=== PATIENT | female | born 1975 | race Two or more races ===

== ENCOUNTER 2024-10-27 11:10 | Emergency (ER) | payer SELFPAY ==
[~2024-10-27] VITALS: Ht 162.6 cm; Wt 70.0 kg
--- NOTE | 2024-10-27 11:18 | ECG ---
[facility] Test Date: 2024-10-27 Test Time: 11:12:56 Pat Name: VANESSA HAYWOOD Department: er Room: Gender: F Senior Operations Analyst: brittany : 1975 Requested By: KAREEM DALE Order Number: [id number] Reading MD: Matthieu Guillory Measurements Intervals [place] Rate: 53 P: 72 DE: 171 QRS: -42 QRSD: 123 T: 62 QT: 438 QTc: 412 Interpretive Statements Sinus rhythm RBBB and LAFB Electronically Signed On 10-28-2024 8:54:36 PST by Matthieu Guillory Please click the below link to view image of tracing.
--- NOTE | 2024-10-27 11:29 | ED.PDOC ---
GI ASSESSMENT HPI Comments 48 year old female JEAN presents to the ED with chief complaint of abdominal pain. Patient reports that she has been experiencing lower abdominal pain with associated nausea, vomiting, diarrhea, and fever since yesterday. Patient relays that her family at home all has the stomach flu and she is experiencing similar symptoms to them. Patient denies any dizziness, chest pain, SOB, dysuria, hematemesis, or headache. Chief Complaint: Abdominal Pain Time Seen by MD: 11:26 Primary Care Provider: JUSTINE Lou Notes: Nurses Notes, Storm Window Installer Notes, Medications, Allergies Allergies: Coded Allergies: NO KNOWN ALLERGIES (Unverified , 01/29/16) Information Source: Patient, Emergency Med Personnel Mode of Arrival: EMS Timing: Days Duration: Since onset Prehospital treatment: None Quality: Sharp Vomitus: Watery Stool: Watery Severity: Moderate Recent: None Recent Hx of: None Pain Location: Suprapubic Modifying Factors: Nothing Associated sign and symptoms: Nausea, Vomiting, Diarrhea, Abdominal Pain, Fever Past Medical History PAST MEDICAL HISTORY: Denies Surgical History: CYBER DEFENSE ANALYST History: No Pertinent CYBER DEFENSE ANALYST History Social History Smoker: Non-Smoker Alcohol: Denies ETOH Use Drugs: Denies Drug Use Lives In: Home Constitutional: reports: fever; denies: chills, diaphoresis, fatigue, malaise, sweats, weakness, others EENTM: denies: blurred vision, double vision, ear bleeding, ear discharge, ear drainage, ear pain, ear ringing, eye pain, eye redness, hearing loss, mouth pain, mouth swelling, nasal discharge, nose bleeding, nose congestion, nose pain, photophobia, tearing, throat pain, throat swelling, voice changes, others Respiratory: denies: cough, hemoptysis, orthopnea, SOB at rest, shortness of breath, SOB with excertion, stridor, wheezing, others Cardiovascular: denies: chest pain, dizzy spells, diaphoresis, Dyspnea on exertion, edema, irregular heart beat, left arm pain, lightheadedness, palpitations, PND, syncope, others Gastrointestinal: reports: abdominal pain, diarrhea, nausea, vomiting; denies: abdomen distended, blood streaked bowels, constipated, dysphagia, difficulty swallowing, hematemesis, melena, poor appetite, poor fluid intake, rectal bleeding, rectal pain, others Genitourinary: denies: abnormal vagina bleeding, burning, dyspareunia, dysuria, flank pain, frequency, hematuria, incontinence, pain, , vagina discharge, urgency, others Neurological: denies: dizziness, fainting, headache, left sided numbness, left sided weakness, numbness, paresthesia, pre-existing deficit, right sided numbness, right sided weakness, seizure, speech problems, tingling, tremors, weakness, others Musculoskeletal: denies: back pain, gout, joint pain, joint swelling, muscle pain, muscle stiffness, neck pain, others Integumetry: denies: bruises, change in color, change in hair/nails, dryness, laceration, lesions, lumps, rash, wounds, others Allergic/Immunocompromised: denies: Difficulty Healing, Frequent Infections, Hives, Itching, others Hematologic/Lymphatic: denies: anemia, blood clots, easy bleeding, easy bruising, swollen glands, others Endocrine: denies: excessive hunger, excessive sweating, excessive thirst, excessive urination, flushing, intolerance to cold, intolerance to heat, unexplained weight gain, unexplained weight loss, others Psychiatric: denies: anxiety, bipolar disorder, depression, hopeless, panic disorder, schizophrenia, sleepless, suicidal, others All Other Systems: Reviewed and Negative Physical Exam General Appearance: Mild Distress HEENT: Other (Dry mucous membranes) Neck: Full Range of Motion, Normal Inspection Respiratory: Lungs Clear, No Respiratory Distress, Normal Breath Sounds Cardiovascular: No Edema, No JVD, Regular Rate/Rhythm Breast Exam: Deferred Gastrointestinal: Soft, Tenderness (Mild diffuse) Genitalia: Deferred Pelvic: Deferred Rectal: Deferred Extremities: Normal inspection, Normal range of motion, Non-tender, No pedal edema Neurologic: Alert (Oriented x4), No Motor Deficits, Normal Affect, Normal Mood, No Sensory Deficits Cerebellar Function: NOT DONE Reflexes: NOT DONE Skin: Dry, Pallor, Warm Lymphatic: NOT DONE Was a procedure done? Was a procedure done?: No GI differential Dx Differential Diagnosis: Appendicitis, Diverticular disease, Dysmenorrhea, Ectopic , Gastroenteritis, Inflammatory BD, Ischemic Bowel, PID, UTI, Dehydration, Diabetes/ DKA, Electrolyte Imbalance, Food Poisoning, , Bacterial, Parasitic, Viral, Hypovolemia, Renal Failure, Stress Ulcer X-Ray, Labs, Meds, VS Vital Signs Date Time Temp Pulse Resp B/P (MAP) Pulse Ox O2 Delivery O2 Flow Rate FiO2 10/27/24 13:06 98.1 76 20 111/71 (84) 100 98.1 10/27/24 12:08 62 16 132/86 10/27/24 11:40 53 10/27/24 11:25 98.2 78 20 138/78 (98) 97 98.2 10/27/24 11:25 78 20 97 Room Air 10/27/24 11:12 98.0 57 24 126/50 (75) 100 Lab Test 10/27/24 13:24 10/27/24 11:49 Range/Units Urine Color Light-yellow Yellow Urine Clarity Clear Clear Urine pH 5.5 5.0-9.0 Urine Specific [place] 1.023 1.001-1.035 Urine Protein 1+ H Negative Urine Ketones 4+ H Negative Urine Blood 2+ H Negative /uL Urine Nitrite Negative Negative Urine Bilirubin Negative Negative Urine Urobilinogen Normal Negative mg/dL Urine Leukocyte Esterase Negative Negative /uL Urine RBC 1 0 - 4 /hpf Urine WBC 2 0 - 5 /hpf Urine Squamous Epithelial Cells Few <5 /hpf Urine Bacteria None seen None Seen /hpf Urine Mucus Few None Seen Urine Glucose Trace Normal mg/dL White Blood Count 7.2 4.4-10.8 10^3/uL Red Blood Count 4.59 4.0-5.20 10^6/uL Hemoglobin 8.9 L 12.2-16.2 g/dL Hematocrit 29.5 L 36.0-46.0 % Mean Corpuscular Volume 64.2 L 80.0-100.0 fL Mean Corpuscular Hemoglobin 19.4 L 28.0-32.0 pg Mean Corpuscular Hemoglobin Concent 30.1 L 32.0-36.0 g/dL Red Cell Distribution Width 19.9 H 11.8-14.3 % Platelet Count 310 140-450 10^3/uL Mean Platelet Volume 8.1 6.9-10.8 fL Neutrophils (%) (Auto) 97.2 H 37.0-80.0 % Lymphocytes (%) (Auto) 1.9 L 10.0-50.0 % Monocytes (%) (Auto) 0.9 0.0-12.0 % Eosinophils (%) (Auto) 0.0 0.0-7.0 % Basophils (%) (Auto) 0.0 0.0-2.0 % Neutrophils # (Auto) 7.0 1.6-8.6 10 ^3/uL Lymphocytes # (Auto) 0.1 L 0.4-5.4 10 ^3/uL Monocytes # (Auto) 0.1 0-1.3 10 ^3/uL Eosinophils # (Auto) 0 0-0.8 10 ^3/uL Basophils # (Auto) 0 0-0.2 10 ^3/uL Nucleated Red Blood Cells 0.0 % Platelet Estimate Adequate Hypochromasia (manual) Moderate Anisocytosis (manual) Slight Microcytosis Moderate Ovalocytes Few Sodium Level 135 L 136-145 mmol/L Potassium Level 3.7 3.5-5.1 mmol/L Chloride Level 104 98-107 mmol/L Carbon Dioxide Level 21 20-31 mmol/L Anion Gap 10 5-15 Blood Urea Nitrogen 10 9-23 mg/dL Creatinine 0.67 0.550-1.02 mg/dL Glomerular Filtration Rate Calc 106 >90 mL/min BUN/Creatinine Ratio 14.9 10.0-20.0 Serum Glucose 143 H 74-106 mg/dL Calcium Level 9.9 8.7-10.4 mg/dL Total Bilirubin 0.8 0.2-1.0 mg/dL Aspartate Amino Transferase (AST) 11 L 13-40 U/L Alanine Aminotransferase (ALT) 11 7-40 U/L Alkaline Phosphatase 51 46-116 U/L Total Protein 7.8 5.7-8.2 g/dL Albumin 4.7 3.2-4.8 g/dL Lipase 37 12-53 U/L Beta HCG, Quantitative 1.5 1.5-4.2 mIU/mL Current Medications Medications (Trade) Dose Ordered Sig/Juan Miguel Route Start Time Stop Time Status Last Admin Sodium Chloride 2,000 ml @ 1,000 mls/hr Q2H ONCE IV 10/27/24 11:30 10/27/24 13:29 DC 10/27/24 12:09 Ondansetron HCl (Zofran) 4 mg ONCE ONCE IV 10/27/24 11:30 10/27/24 11:51 DC 10/27/24 12:06 Morphine Sulfate 4 mg ONCE ONCE IV 10/27/24 11:30 10/27/24 11:51 DC 10/27/24 12:08 Famotidine (Pepcid Injection) 20 mg ONCE ONCE IV 10/27/24 11:30 10/27/24 11:51 DC 10/27/24 12:07 PROCEDURE(s): ABPL - CT AB PEL WO CON-NO ORAL OR IV REASON: abd pain n/v/d ORDER NUMBER(s): [id number], ACCESSION NUMBER(s): [id number] Exam: CT CT AB PEL WO CON-NO ORAL OR IV History: abd pain n/v/d Comparison Study: None available at time of dictation. TECHNIQUE: Multidetector CT of the abdomen was performed from lung bases to pubic symphysis. Imaging was performed without IV contrast. Axial, coronal and sagittal multiplanar reformats were obtained from the axial data set by the technologist. Radiation Dose Information: CT Dose: CTDI volume is 15.67 mGy. Dose-length product is 859.75 mGy*cm FINDINGS: Evaluation of solid organs is limited due to lack of intravenous contrast use. Findings: Lung Bases: No acute or significant lung base finding. Normal heart size. No pleural or pericardial effusion. Liver: The liver is normal in size. No focal lesions. Gallbladder and Biliary Tree: Unremarkable Spleen: Unremarkable Pancreas: The pancreas is grossly normal in appearance. Adrenal Glands: Unremarkable Kidneys: Kidneys are grossly normal without calculi or hydronephrosis. Bladder: Grossly unremarkable for degree of distention. Bowel: The stomach is grossly normal in appearance. Small bowel and colon are normal in caliber and distribution. The appendix is not visualized; however, no secondary findings of acute appendicitis identified. Ascites: Absent Lymphadenopathy: No mesenteric, retroperitoneal or periportal lymphadenopathy. Abdominal Wall and Mesentery: Unremarkable. Vasculature: The visualized abdominal aorta is normal in size and caliber. Evaluation of abdominal and pelvic vessels is limited due to lack of intravenous contrast. Pelvic Organs: Unremarkable Musculoskeletal: No aggressive focal bony lesions, acute fractures or dislocation. Grade 1 anterior spondylolisthesis L4-5 Soft tissues: Unremarkable IMPRESSION: 1. Gallbladder filled with calculi. 2. No free air no free fluid. 3. Grade 1 anterior spondylolisthesis L4-5 X-Ray, Labs, Meds, VS Comment 48-year-old female with no significant past medical history complaining of a diffuse abdominal pain, nausea, vomiting and diarrhea. Patient reports sick contacts with similar symptoms at home Vitals remarkable for initial heart rate 57 Exam remarkable for mild diffuse abdominal tenderness to palpation. No rebound or guarding. No localized right upper quadrant tenderness or Bonilla's sign. CT abdomen and pelvis IMPRESSION: 1. Gallbladder filled with calculi. 2. No free air no free fluid. 3. Grade 1 anterior spondylolisthesis L4-5 CBC remarkable for hemoglobin 8.9, hematocrit 29.5, CMP remarkable for sodium 135, no other abnormalities of acute significance. HCG negative. Lipase normal. UA abnormal showing ketones, protein and blood, not consistent with UTI Patient treated with the following in the ED: 2 L 0.9 normal saline IV bolus, morphine 4 mg IV, Zofran 4 mg IV, Pepcid 20 mg IV. On re-evaluation, patient states symptoms have improved. Vitals are stable. Repeat abdominal exam was benign. Patient tolerated p.o. fluids. Hospitalization was considered, however patient had rapid improvement of symptoms with treatment in the ED, and I no longer feel hospitalization is necessary. Patient appears stable for outpatient treatment and close follow-up with her primary physician. Rx Bentyl, Zofran, ibuprofen, Imodium Time of 1ST Reevaluation: 12:26 Reevaluation 1ST: Unchanged Patient Education/Counseling: Diagnosis, Treatment Family Education/Counseling: No Family Present Departure 1 Departure Time of Disposition: 14:27 Impression: Primary Impression: Abdominal pain Qualified Codes: R10.84 - Generalized abdominal pain Additional Impression: Vomiting and diarrhea Disposition: 01 HOME / SELF CARE / HOMELESS Condition: Stable Additional Instructions: Your blood tests showed you have mild anemia and a mildly low sodium. There was no intervention required for the anemia. We have corrected the sodium here in the ED. Your CT scan showed you have gallbladder stones, however this is likely an incidental finding and not the cause of your symptoms. I have prescribed pain medication, medication for nausea, and medication for diarrhea. Follow-up with your primary doctor in 1-2 days. Return to ER for persistent or worsening symptoms. e-Prescriptions Ibuprofen Micronized (Ibuprofen) 800 Mg Tab 800 MG PO Q8HP PRN, #30 TAB prn fever or pain, take with food Prov: ARY GOULD MD 10/27/24 Loperamide HCl (Imodium A-D) 2 Mg Cap 2 MG PO Q6HP PRN, #20 CAP prn diarrhea Prov: ARY GOULD MD 10/27/24 Ondansetron Odt 4MG Tab (ZOFRAN PO) 4 Mg Tb 4 MG PO TID PRN, #20 TAB prn n/v ODT TAB-DISSOLVE IN MOUTH, THEN SWALLOW Prov: ARY GOULD MD 10/27/24 Dicyclomine Hcl (BENTYL CAPSULE) 10 Mg Cp 2 CAP PO Q6HPRN PRN, #30 CAP 3 Refills prn abdominal pain Prov: ARY GOULD MD 10/27/24 Discharged With: Relative Critical Care Note Critical Care Time?: No Stability Stability form required: No Heart Score Heart Score: Heart Score Response (Comments) Value History N/A 0 EKG N/A 0 Age N/A 0 Risk Factors N/A 0 Troponin N/A 0 Total 0 I personally scribed for ARY GOULD MD ([email or web address]) on 10/27/24 at 11:29. Electronically submitted by David Tovar ([email or web address]). ARY GOULD MD Oct 27, 2024 11:29
[2024-10-27] MEDS: ONDANSETRON HCL 4 MG/2 ML VIAL IV ONE (12:06)
[2024-10-27] MEDS: FAMOTIDINE (10MG/ML) 2ML VL IV ONE (12:07)
[2024-10-27] MEDS: MORPHINE SULFATE 4 MG/ML SYR/VIAL IV ONE (12:08)
[2024-10-27] MEDS: SODIUM CHLORIDE 0.9% 2,000 ML IV ONE (12:09)
[2024-10-27 12:27] LABS: Basophils # (auto) 0 10 ^3/uL (0-0.2); Eosinophils # (auto) 0 10 ^3/uL (0-0.8); Hemoglobin 8.9 g/dL (12.2-16.2); Mean Corpuscular Hemoglobin 19.4 pg (28.0-32.0); Mean Corpuscular Hgb Conc. 30.1 g/dL (32.0-36.0); Monocytes # (auto) 0.1 10 ^3/uL (0-1.3); Red Blood Cells 4.59 10^6/uL (4.0-5.20); Red Cell Distribution Width 19.9 % (11.8-14.3); White Blood Cell 7.2 10^3/uL (4.4-10.8)
[2024-10-27 12:29] LABS: Hematocrit 29.5 % (36.0-46.0); Lymphocytes # (auto) 0.1 10 ^3/uL (0.4-5.4); Lymphocytes % (auto) 1.9 % (10.0-50.0); Mean Corpuscular Volume 64.2 fL (80.0-100.0); Monocytes % (auto) 0.9 % (0.0-12.0); Neutrophils % (auto) 97.2 % (37.0-80.0); Platelet Count (auto) 310 10^3/uL (140-450)
[2024-10-27 13:06] LABS: Alanine Aminotransferase 11 U/L (7-40); Albumin 4.7 g/dL (3.2-4.8); Alkaline Phosphatase 51 U/L (46-116); Anion Gap 10 (5-15); BUN/Creatinine Ratio 14.9 (10.0-20.0); Blood Urea Nitrogen 10 mg/dL (9-23); Calcium 9.9 mg/dL (8.7-10.4); Carbon Dioxide 21 mmol/L (20-31); Chloride 104 mmol/L (98-107); Lipase 37 U/L (12-53); Potassium 3.7 mmol/L (3.5-5.1)
[2024-10-27 13:07] LABS: Bilirubin, Total 0.8 mg/dL (0.2-1.0); Total Protein 7.8 g/dL (5.7-8.2)
[2024-10-27 13:13] LABS: Aspartate Aminotransferase 11 U/L (13-40); Glucose 143 mg/dL (74-106); Sodium 135 mmol/L (136-145)
[2024-10-27 13:25] LABS: Urine Bacteria None Seen /hpf (None Seen)
[2024-10-27 13:38] LABS: Hypochromia Moderate; Ovalocytes FEW
[2024-10-27 13:39] LABS: Anisocytosis Slight; Platelet Estimate Adequate
--- NOTE | 2024-10-27 13:52 | DVH ---
Exam: CT CT AB PEL WO CON-NO ORAL OR IV History: abd pain n/v/d Comparison Study: None available at time of dictation. TECHNIQUE: Multidetector CT of the abdomen was performed from lung bases to pubic symphysis. Imaging was performed without IV contrast. Axial, coronal and sagittal multiplanar reformats were obtained fr om the axial data set by the technologist. Radiation Dose Information: CT Dose: CTDI volume is 15.67 mGy. Dose-length product is 859.75 mGy*cm FINDINGS: Evaluation of solid organs is limited due to lack of intravenous contrast use. Findings: Lung Bases: No acute or significant lung base finding. Normal heart size. No pleural or pericardial effusion. Liver: The liver is normal in size. No focal lesions. Gallbladder and Biliary Tree: Unremarkable Spleen: Unremarkable Pancreas: The pancreas is grossly normal in appearance. Adrenal Glands: Unremarkable Kidneys: Kidneys are grossly normal without calculi or hydronephrosis. Bladder: Grossly unremarkable for degree of distention. Bowel: The stomach is grossly normal in appearance. Small bowel and colon are normal in caliber and d istribution. The appendix is not visualized; however, no secondary findings of acute appendicitis id entified. Ascites: Absent Lymphadenopathy: No mesenteric, retroperitoneal or periportal lymphadenopathy. Abdominal Wall and Mesentery: Unremarkable. Vasculature: The visualized abdominal aorta is normal in size and caliber. Evaluation of abdominal a nd pelvic vessels is limited due to lack of intravenous contrast. Pelvic Organs: Unremarkable Musculoskeletal: No aggressive focal bony lesions, acute fractures or dislocation. Grade 1 anterior s pondylolisthesis L4-5 Soft tissues: Unremarkable IMPRESSION: 1. Gallbladder filled with calculi. 2. No free air no free fluid. 3. Grade 1 anterior spondylolisthesis L4-5 Radiation optimization: All CT scans at this facility use at least one of these dose optimization te chniques: automated exposure control mA and/or kV adjustment per patient size (includes targeted exa ms where dose is matched to clinical indication) or iterative reconstruction. HS:Y
[2024-10-27 13:58] LABS: Urine Blood 2+ /uL (Negative); Urine Clarity Clear (Clear); Urine Color Light-Yellow (Yellow); Urine Mucus FEW (None Seen); Urine Protein, UAD 1+ (Negative); Urine Specific Gravity 1.023 (1.001-1.035); Urine Squamous Epithelial Cell FEW /hpf (<5); Urine Urobilinogen Normal (Negative); Urine WBC 2 /hpf (0 - 5); Urine pH 5.5 (5.0-9.0)
[2024-10-27] MEDS ORDERED: ZOFR4T PO (14:32)
[2024-10-27] MEDS ORDERED: IBUP-1455 PO (14:32)
[2024-10-27] MEDS ORDERED: DICY10CA PO (14:32)
[2024-10-27] MEDS ORDERED: LOPE7.5C PO (14:32)
[2024-10-27 14:49] VITALS: TEMP 98.1; O2SAT 99
[2024-10-27 14:51] VITALS: BP 119/59; PULSE 72; RESP 16
== END 2024-10-27 14:51 | disposition home or self-care (01) ==
LOC: EDBD 11:10 → ER 11:10
DX: R10.30 Lower abdominal pain, unspecified (principal); R10.84 Generalized abdominal pain; R11.2 Nausea with vomiting, unspecified; R19.7 Diarrhea, unspecified; R50.9 Fever, unspecified; Z98.890 Other specified postprocedural states
CPT/HCPCS: 36415; 74176; 80053; 81001; 83690; 84702; 85025; 93005; 96361; 96374; 96375; 99285; J2270; J2405; J3490; J7030